=== PATIENT | female | born 1955 | race Caucasian/White ===

== ENCOUNTER → 2017-02-06 | Outpatient (CLI) | payer BC ==
[~2017-02-06] MED LIST: ASPI81TA28 PO; ASTN; B-COTAB18 PO; CALC-358 PO; FLUT50SP14 NAE; GABA-113 PO; LEVO112T2 PO; MELO7.5T5 PO; MULT1CAP6 PO; ONDA4TAB7 SL
--- NOTE | 2017-02-07 10:57 | MAMMOGRAPHY REPORT ---
BILATERAL DIGITAL SCREENING MAMMOGRAM TOMOSYNTHESIS WITH CAD: 02/06/2017 CLINICAL HISTORY: Routine screening. Patient has no complaints. TECHNIQUE: Breast tomosynthesis in addition to standard 2D mammography was performed. Current study was also evaluated with a Computer Aided Detection (CAD) system. COMPARISON: Comparison is made to exams dated: 02/04/2016 mammogram, 11/26/2013 mammogram, 01/06/2015 mammogram - [facility], 08/16/2012 mammogram - [facility], 04/30/2008, an d 02/15/2007. BREAST COMPOSITION: There are scattered areas of fibroglandular density in both breasts. FINDINGS: There are regional punctate microcalcifications in the lateral aspect of each breast, unch anged dating back to at least 2009, therefore likely benign. No new suspicious mass, architectural distortion or cluster of new, suspicious microcalcifications is seen. IMPRESSION: ACR BI-RADS CATEGORY 1: NEGATIVE There is no mammographic evidence of malignancy. A 1 year screening mammogram is recommended. The p atient will receive written notification of the results. Approximately 10% of breast cancers are not detected with mammography. A negative mammographic repor t should not delay biopsy if a clinically suggestive mass is present. Bethany Davis M.D. ay/:02/06/2017 17:18:39 Parts Puller: Isabel LEON)(Dary), [facility] letter sent: Normal 1/2 BI-RADS Code: ACR BI-RADS Category 1: Negative
== END | disposition home or self-care (01) ==
LOC: C.MAMM 09:37
PROVIDERS: ATTEND Family Medicine
DX: Z12.31 Encounter for screening mammogram for malignant neoplasm of breast (principal)

== ENCOUNTER → 2018-02-12 | Outpatient (CLI) | payer OTHER ==
--- NOTE | 2018-02-12 13:56 | MAMMOGRAPHY REPORT ---
BILATERAL DIGITAL SCREENING MAMMOGRAM TOMOSYNTHESIS WITH CAD: 02/12/2018 CLINICAL HISTORY: Routine screening. Patient has no complaints. TECHNIQUE: Breast tomosynthesis in addition to standard 2D mammography was performed. Current study was also evaluated with a Computer Aided Detection (CAD) system. COMPARISON: Comparison is made to exams dated: 02/06/2017 mammogram, 02/04/2016 mammogram, 01/06/2015 m ammogram, 11/26/2013 mammogram - [facility], and 08/16/2012 mammogram - [facility]. BREAST COMPOSITION: There are scattered areas of fibroglandular density in both breasts. FINDINGS: No suspicious masses, calcifications, or areas of architectural distortion are noted in ei ther breast. There has been no significant interval change compared to prior exams. Bilateral benign -appearing calcifications are not significantly changed. IMPRESSION: ACR BI-RADS CATEGORY 2: BENIGN There is no mammographic evidence of malignancy. A 1 year screening mammogram is recommended. The pa tient will receive written notification of the results. Approximately 10% of breast cancers are not detected with mammography. A negative mammographic report should not delay biopsy if a clinically suggestive mass is present. Manuela Pack M.D. /:02/12/2018 08:38:42 Keeper Head: Bianca BURNETTE(Thania)(Dary), [facility] letter sent: Normal 1/2 BI-RADS Code: ACR BI-RADS Category 2: Benign
== END | disposition home or self-care (01) ==
LOC: C.MAMM 08:01
PROVIDERS: ATTEND Physician Assistant
DX: Z12.31 Encounter for screening mammogram for malignant neoplasm of breast (principal)

== ENCOUNTER 2020-08-10 19:03 | Inpatient (IN) ==
[2020-08-10] MEDS ORDERED: LACTATED RINGER'S 1,000 ML IV ONE (19:38)
--- NOTE | 2020-08-10 19:45 | Emergency Department Note ---
Impression & Plan Depression, Fatigue ED Provider Note Provider: Mynor Pulido MD DATE OF SERVICE: 08/10/2020 CHIEF COMPLAINT: Depression, weakness HISTORY OF PRESENT ILLNESS: Patient is a 64-year-old female history of anxiety depression seen by myself recently several times with recent inpatient stay at the [facility] signed out a week ago presented today due to worsening depression anxiety and weakness. Patient states that her inpatient stay was unhelpful and while she was initially placed on Remeron with some improvement is no longer helping and she is very depressed and anxious. Patient states she is barely eating and feels weak. Patient states she has no energy and is very fatigued. No trauma reported. No fevers reported. Denies pain. States her son has just flew into from [place] and is here for support. REVIEW OF SYSTEMS: A total of 10 review of systems was obtained and negative except as stated above in the HPI. PAST MEDICAL HISTORY: As noted above MEDICATIONS: Reviewed home medication listing SOCIAL HISTORY: Currently getting divorce, living with friends PHYSICAL EXAM: GENERAL: alert and oriented laying on stretcher appears quite fatigued tearful Head: normocephalic and atraumatic EYES: No injection, discharge or icterus. NECK: Trachea midline. Supple. ENT: Mucous membranes pink and moist. LUNGS: Airway patent. No retractions. Breath sounds clear with good air entry bilaterally. HEART: Regular rate and rhythm. No chest wall tenderness ABDOMEN: Soft and non-tender, without guarding or rebound. SKIN: Acyanotic, warm, dry, without rashes EXTREMITIES: Without swelling, tenderness or deformity NEUROLOGICAL: No focal deficits. No aphasia. No facial droop or slurred speech. Ambulatory. Psych: No acute SI or HI. Not responding to external stimuli. Hopeless and severely depressed quite tearful during interview. EK bpm normal sinus rhythm. No PVCs. No acute ST segment elevation or depression noted. Normal QTC. Patient's laboratory studies reviewed. Differential includes Mood disorder, infection, hypoglycemia, electrolyte abnormalities, cardiac sources, intracerebral event, toxicologic, trauma, neurologic, as well as other pathologies. IMPRESSION/MEDICAL DECISION MAKING: Basic labs and electrolytes were completed. Seen in conjunction with the psychiatric protective services case worker. No focality to her exam and her believe this is likely related to underlying anxiety and depression causing her fatigue. Hydrated with a liter of IV fluid. Labs without significant abnormality. Patient is basically nonfunctional due to her severe anxiety and depression. Her son who is a nurse crisis clinician from [place] flew into [facility] to provide support. She had a bad experience the medicine does not want to consider going back therapy will see if [facility] may possibly have openings here for inpatient psychiatric treatment. They accept the patient further inpatient treatment. DIAGNOSIS: Anxiety and depression, fatigue DISPOSITION: Inpatient psychiatric treatment Past Med/Surg History Medical History (Updated 08/10/20 @ 22:04 by Mynor Pulido M.D.) GERD (gastroesophageal reflux disease) Hypothyroidism Kidney stones Surgical History History of adenoidectomy History of carpal tunnel release History of colonoscopy History of decompression of ulnar nerve History of dilatation and curettage MISSED AB History of foot surgery 2012. DR. SAL, FX REPAIR History of oral surgery DENTAL IMPLANT History of thyroidectomy History of tonsillectomy Social History Smoking Status: Former smoker Second Hand Exposure: No; Hx Alcohol Use: Yes Alcohol type: wine Hx Substance Use: No Preferred Language: Libyan Communication Ability: Effective Complaint Investigator Required: No Beliefs That Will Affect Care: None Current Living Situation: Spouse Feels Safe at Home: Yes Allergies Allergies Allergy/AdvReac Type Severity Reaction Status Date / Time erythromycin base AdvReac Mild NAUSEA Verified 08/01/20 15:49 Home Meds Home Medications Medication Instructions Recorded Confirmed azelastine 1 spray INTRANASAL BID 02/01/19 08/10/20 omeprazole 20 mg PO DAILY 02/01/19 08/10/20 hydroxyzine HCl 25 mg PO Q6H PRN 08/01/20 08/10/20 clobetasol 1 applic TOPICAL UD PRN 08/10/20 08/10/20 levothyroxine See Rx Instructions .ROUTE .COMPLEX 08/10/20 08/10/20 mirtazapine 15 mg PO HS 08/10/20 08/10/20 Results & Data (ED) Vital Signs Vital Signs - 24 hr 08/10/20 19:15 08/10/20 20:46 Temperature 36.9 C Temperature Source Oral Pulse Rate 78 Pulse Rate [Right Finger] 63 Respiratory Rate 20 16 Respiratory Depth Normal Blood Pressure 121/84 Blood Pressure [Right Arm] 113/67 Blood Pressure Mean 96 Blood Pressure Mean [Right Arm] 82 Blood Pressure Position [Right Arm] Lying Pulse Oximetry 96 98 Oxygen Delivery Method Room Air Room Air Sepsis New/Unexplained Change in Mental Status N/A Sepsis Action Taken by Nursing No Action Required Laboratory Data Result diagrams: 08/10/20 19:52 08/10/20 19:52 Lab Results 08/10/20 08/10/20 08/10/20 Range/Units 19:52 19:52 19:52 WBC 6.83 (4.8-10.8) K/uL RBC 4.55 (4.2-5.4) M/uL Hgb 14.2 (12.0-16.0) g/dL Hct 42.6 (37-47) % MCV 93.6 (80-100) fL MCH 31.2 (25-34) pg MCHC 33.3 (32-36) g/dL RDW Std Deviation 46.1 (36.4-46.3) fL RDW Coeff of Silvio 13.5 (11.5-14.5) % Plt Count 258 (130-400) K/uL MPV 9.7 (7.4-10.4) fL Immature Gran % (Auto) 0.1 % Neut % (Auto) 61.0 % Lymph % (Auto) 25.9 % [place] % (Auto) 11.1 % Eos % (Auto) 1.3 % Baso % (Auto) 0.6 % Neut # (Auto) 4.16 (1.4-6.5) K/uL Lymph # (Auto) 1.77 (1.2-3.4) K/uL [place] # (Auto) 0.76 H (0.11-0.59) K/uL Eos # (Auto) 0.09 (0-0.5) K/uL Baso # (Auto) 0.04 (0-0.2) K/uL Immature Gran # (Auto) 0.01 (0.00-0.02) K/uL Sodium 137 (136-145) mmol/L Potassium 3.8 (3.5-5.1) mmol/L Chloride 105 (98-107) mmol/L Carbon Dioxide 29 (21-32) mmol/L Anion Gap 3.0 (3-11) BUN 19 H (7-18) mg/dl Creatinine 0.84 (0.6-1.2) mg/dl Est Cr Clr Drug Dosing 58.3 ml/min Est GFR ( Amer) 85.7 Est GFR (Non-Af Amer) 74.0 BUN/Creatinine Ratio 22.8 H (10-20) Glucose 90 (70-99) mg/dl Calcium 9.4 (8.5-10.1) mg/dl Total Bilirubin 0.6 (0.2-1) mg/dl AST 12 L (15-37) U/L ALT 23 (12-78) U/L Alkaline Phosphatase 84 (45-117) U/L Total Protein 8.1 (6.4-8.2) gm/dl Albumin 3.9 (3.4-5.0) gm/dl Globulin 4.2 H (2.5-4.0) gm/dl Albumin/Globulin Ratio 0.9 (0.9-2) TSH 0.774 (0.300-4.500) uIu/ml Urine Color Urine Appearance (Clear) Urine pH (4.5-7.5) Ur Specific [place] (1.000-1.030) Urine Protein (Negative) Urine Glucose (UA) (Negative) Urine Ketones (Negative) Urine Blood (Negative) Urine Nitrite (Negative) Urine Bilirubin (Negative) Urine Urobilinogen (Negative) Ur Leukocyte Esterase (Negative) Urine RBC (0-4) /hpf Urine WBC (0-5) /hpf Ur Epithelial Cells (0-5) /lpf Urine Bacteria (Negative) Salicylates < 1.7 L (2.8-20) mg/dl Urine Opiates Screen (Neg) Ur Methadone, Qual (Neg) Acetaminophen < 2 L (10-30) ug/ml Urine Barbiturates (Neg) Ur Phencyclidine (PCP) (Neg) U Amphetamin/Meth Scrn (Neg) MDMA (Ecstasy) Screen (Neg) U Benzodiazepines Scrn (Neg) Ur Cocaine Metabolite (Neg) U Marijuana (THC) Screen (Neg) Ethyl Alcohol mg/dL (0-3) mg/dl 08/10/20 08/10/20 08/10/20 Range/Units 19:52 19:53 20:36 WBC (4.8-10.8) K/uL RBC (4.2-5.4) M/uL Hgb (12.0-16.0) g/dL Hct (37-47) % MCV (80-100) fL MCH (25-34) pg MCHC (32-36) g/dL RDW Std Deviation (36.4-46.3) fL RDW Coeff of Silvio (11.5-14.5) % Plt Count (130-400) K/uL MPV (7.4-10.4) fL Immature Gran % (Auto) % Neut % (Auto) % Lymph % (Auto) % [place] % (Auto) % Eos % (Auto) % Baso % (Auto) % Neut # (Auto) (1.4-6.5) K/uL Lymph # (Auto) (1.2-3.4) K/uL [place] # (Auto) (0.11-0.59) K/uL Eos # (Auto) (0-0.5) K/uL Baso # (Auto) (0-0.2) K/uL Immature Gran # (Auto) (0.00-0.02) K/uL Sodium (136-145) mmol/L Potassium (3.5-5.1) mmol/L Chloride (98-107) mmol/L Carbon Dioxide (21-32) mmol/L Anion Gap (3-11) BUN (7-18) mg/dl Creatinine (0.6-1.2) mg/dl Est Cr Clr Drug Dosing ml/min Est GFR ( Amer) Est GFR (Non-Af Amer) BUN/Creatinine Ratio (10-20) Glucose (70-99) mg/dl Calcium (8.5-10.1) mg/dl Total Bilirubin (0.2-1) mg/dl AST (15-37) U/L ALT (12-78) U/L Alkaline Phosphatase (45-117) U/L Total Protein (6.4-8.2) gm/dl Albumin (3.4-5.0) gm/dl Globulin (2.5-4.0) gm/dl Albumin/Globulin Ratio (0.9-2) TSH (0.300-4.500) uIu/ml Urine Color Yellow Urine Appearance Clear (Clear) Urine pH 6.0 (4.5-7.5) Ur Specific [place] >= 1.030 (1.000-1.030) Urine Protein Negative (Negative) Urine Glucose (UA) Negative (Negative) Urine Ketones Negative (Negative) Urine Blood Trace H (Negative) Urine Nitrite Negative (Negative) Urine Bilirubin Negative (Negative) Urine Urobilinogen Negative (Negative) Ur Leukocyte Esterase Negative (Negative) Urine RBC 0-4 (0-4) /hpf Urine WBC 5-10 H (0-5) /hpf Ur Epithelial Cells >30 H (0-5) /lpf Urine Bacteria Negative (Negative) Salicylates (2.8-20) mg/dl Urine Opiates Screen Neg (Neg) Ur Methadone, Qual Neg (Neg) Acetaminophen (10-30) ug/ml Urine Barbiturates Neg (Neg) Ur Phencyclidine (PCP) Neg (Neg) U Amphetamin/Meth Scrn Neg (Neg) MDMA (Ecstasy) Screen Neg (Neg) U Benzodiazepines Scrn Neg (Neg) Ur Cocaine Metabolite Neg (Neg) U Marijuana (THC) Screen Neg (Neg) Ethyl Alcohol mg/dL < 3.0 (0-3) mg/dl Administered Medications Discontinued Medications Lactated Ringer's (Lr) 1,000 mls @ 999 mls/hr IV .[id number] ONE Stop: 08/10/20 20:38 Last Admin: 08/10/20 20:26 Dose: 999 mls/hr Documented by: [id number] Discharge Plan Visit Data Chief Complaint: Mental Health Evaluation Stated Complaint: depression ED Provider: Mynor Pulido Discharge Problem: Depression, Fatigue Forms Stand Alone Forms: My [facility], Suicide Prevention Resources Prescriptions Prescriptions: No Action omeprazole 20 mg Capsule,Delayed Release(Dr/Ec) 20 mg PO DAILY RF: 0 azelastine 0.15 % (205.5 mcg) [place],Non-Aerosol 1 spray INTRANASAL BID RF: 0 hydroxyzine HCl 25 mg tablet 25 mg PO Q6H PRN (Reason: Anxiety) RF: 0 levothyroxine 100 mcg tablet See Rx Instructions .ROUTE .COMPLEX RF: 0 clobetasol 0.05 % foam 1 applic TOPICAL UD PRN (Reason: Scalp Itchiness) RF: 0 mirtazapine 15 mg tablet 15 mg PO HS RF: 0 Discharge Problem: Depression Qualifiers: Depression Type: major depressive disorder Major depression recurrence: recurrent Active/Remission status: currently active Major depression episode severity: severe Psychotic features: without psychotic features Qualified Code(s): F33.2 - Major depressive disorder, recurrent severe without psychotic features Fatigue Qualifiers: Fatigue type: unspecified Qualified Code(s): R53.83 - Other fatigue
[2020-08-10 20:10] LABS: Basophils # (auto) 0.04 K/uL (0-0.2); Basophils % (auto) 0.6 %; Eosinophils # (auto) 0.09 K/uL (0-0.5); Eosinophils % (auto) 1.3 %; Hematocrit (blood only) 42.6 % (37-47); Hemoglobin 14.2 g/dL (12.0-16.0); Immature Granulocytes # (auto) 0.01 K/uL (0.00-0.02); Immature Granulocytes % (auto) 0.1 %; Lymphocytes # (auto) 1.77 K/uL (1.2-3.4); Lymphocytes % (auto) 25.9 %; Mean Corpuscular Hemoglobin 31.2 pg (25-34); Mean Corpuscular Hgb Conc 33.3 g/dL (32-36); Mean Corpuscular Volume 93.6 fL (80-100); Mean Platelet Volume 9.7 fL (7.4-10.4); Monocytes # (auto) 0.76 K/uL (0.11-0.59); Monocytes % (auto) 11.1 %; Neutrophils # (auto) 4.16 K/uL (1.4-6.5); Platelet Count 258 K/uL (130-400); RDW Coefficient of Variation 13.5 % (11.5-14.5); RDW Standard Deviation 46.1 fL (36.4-46.3); Red Blood Count 4.55 M/uL (4.2-5.4); White Blood Count 6.83 K/uL (4.8-10.8)
[2020-08-10 20:30] LABS: Appearance Urine Clear (Clear); Bilirubin Urine Negative (Negative); Blood Urine Trace (Negative); Color Urine Yellow; Glucose Urine UA Negative (Negative); Ketones Urine Negative (Negative); Leukocyte Esterase Urine Negative (Negative); Nitrite Urine Negative (Negative); Protein Urine Negative (Negative); Specific Gravity Urine >= 1.030 (1.000-1.030); Urobilinogen Urine Negative (Negative)
[2020-08-10 20:37] LABS: Albumin Level 3.9 gm/dl (3.4-5.0); BUN Creatinine Ratio 22.8 (10-20); Calcium 9.4 mg/dl (8.5-10.1); Creatinine Clr Calc Pharmacy 58.3 ml/min; Est GFR (African American) 85.7; Potassium 3.8 mmol/L (3.5-5.1)
[2020-08-10 20:42] LABS: Bacteria Urine Negative (Negative); Epithelial Cell Urine >30 /lpf (0-5); RBC Urine 0-4 /hpf (0-4)
[2020-08-10 20:45] LABS: Salicylate < 1.7 mg/dl (2.8-20)
[2020-08-10 20:46] LABS: Acetaminophen < 2 ug/ml (10-30)
[2020-08-10 20:48] LABS: Albumin Globulin Ratio 0.9 (0.9-2); Bilirubin,Total 0.6 mg/dl (0.2-1); Globulin 4.2 gm/dl (2.5-4.0); Thyroid Stimulating Hormone 0.774 uIu/ml (0.300-4.500); Total Protein 8.1 gm/dl (6.4-8.2)
[2020-08-10 21:06] LABS: Amphetamines+Metham, Urine Neg (Neg); Barbiturates, Urine Neg (Neg); Benzodiazepine, Urine Neg (Neg); Cocaine, Urine Neg (Neg); MDMA (Ecstacy), Urine Neg (Neg); Methadone, Urine Neg (Neg); Opiate, Urine Neg (Neg); Phencyclidine, Urine Neg (Neg)
[2020-08-10] MEDS ORDERED: BISMUTH SUBSALICYLATE PER ML OMNICELL CHARGE PO PRN (22:54)
[2020-08-10] MEDS ORDERED: MAGNESIUM HYDROXIDE SUSP 30 ML UDC PO PRN (22:54)
[2020-08-10] MEDS ORDERED: ALUMINUM/MAGNESIUM SUSP 30 ML UDC PO PRN (22:54)
[2020-08-10] MEDS ORDERED: SODIUM CHLORIDE 0.65% NA SOLN 45 ML (OCEAN) PRN (22:54)
[2020-08-10] MEDS ORDERED: ACETAMINOPHEN 325 MG TAB PO PRN (22:54)
[2020-08-10] MEDS ORDERED: MIRTAZAPINE TAB 15 MG TAB PO ONE (22:55)
[2020-08-11] MEDS: PANTOprazole 40 MG TAB PO SCH (09:06)
[2020-08-11] MEDS: LEVOTHYROXINE SODIUM 50 MCG TABLET PO SCH (09:06)
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
--- NOTE | 2020-08-11 15:11 | Electrocardiogram Report ---
Test Reason : Blood Pressure : / mmHG Vent. Rate : 061 BPM Atrial Rate : 061 BPM P-R Int : 160 ms QRS Dur : 082 ms QT Int : 404 ms P-R-T Axes : 077 060 067 degrees QTc Int : 406 ms Normal sinus rhythm Early repolarization Normal ECG When compared with ECG of 16-MAY-2013 09:22, No significant change was found Confirmed by Ernesto Medrano ([id number]) on 08/11/2020 3:11:01 PM Referred By: REFERRED SELF Confirmed By:Ernesto Medrano
[2020-08-11] MEDS ORDERED: MIRTAZAPINE TAB 15 MG TAB PO SCH (22:00)
[2020-08-11] MEDS: MIRTAZAPINE TAB 15 MG TAB PO SCH (22:05)
[2020-08-12] MEDS: LEVOTHYROXINE SODIUM 100 MCG TABLET PO SCH (06:16)
[2020-08-12] MEDS: PANTOprazole 40 MG TAB PO SCH (09:04)
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
[2020-08-12] MEDS: BISMUTH SUBSALICYLATE LIQD 236 ML PO PRN ×2 (10:39→17:24)
[2020-08-12] MEDS ORDERED: QUETIAPINE FUMARATE 25 MG TABLET PO STA (13:16)
[2020-08-12] MEDS ORDERED: QUETIAPINE FUMARATE 25 MG TABLET PO PRN (13:17)
[2020-08-12] MEDS: MIRTAZAPINE TAB 15 MG TAB PO SCH (22:57)
[2020-08-13] MEDS: LEVOTHYROXINE SODIUM 50 MCG TABLET PO SCH (09:53)
[2020-08-13] MEDS: PANTOprazole 40 MG TAB PO SCH (09:53)
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
[2020-08-13] MEDS ORDERED: ARIPiprazole 5 MG TAB PO ONE (10:30)
[2020-08-13] MEDS ORDERED: clonazePAM 0.5 MG TAB PO STA (12:43)
[2020-08-13] MEDS ORDERED: clonazePAM 0.5 MG TAB PO PRN (16:35)
[2020-08-13] MEDS: MIRTAZAPINE TAB 15 MG TAB PO SCH (21:25)
[2020-08-14] MEDS: LEVOTHYROXINE SODIUM 100 MCG TABLET PO SCH (06:49)
[2020-08-14 07:55] LABS: Glucose Fasting 87 mg/dl (70-99)
[2020-08-14 08:01] LABS: Chol HDL Ratio 3; Cholesterol 220 mg/dl (0-200); HDL Cholesterol 74 mg/dl; LDL Cholesterol Calculated 125 mg/dl; Triglycerides 106 mg/dl (0-150); VLDL Cholesterol 21 mg/dl
[2020-08-14] MEDS: clonazePAM 0.25 MG TAB PO SCH ×2 (09:14→21:21)
[2020-08-14] MEDS: ARIPiprazole 5 MG TAB PO SCH (09:14)
[2020-08-14] MEDS: PANTOprazole 40 MG TAB PO SCH (09:14)
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
[2020-08-14] MEDS: MIRTAZAPINE TAB 15 MG TAB PO SCH (21:21)
[2020-08-15] MEDS: LEVOTHYROXINE SODIUM 50 MCG TABLET PO SCH (07:00)
[2020-08-15] MEDS: PANTOprazole 40 MG TAB PO SCH (08:56)
[2020-08-15] MEDS: clonazePAM 0.25 MG TAB PO SCH ×2 (08:56→21:33)
[2020-08-15] MEDS: ARIPiprazole 5 MG TAB PO SCH (08:56)
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
[2020-08-15] MEDS: FLUTICASONE PROPIONATE NA SPR 16 GM BTL SCH ×2 (14:37→21:33)
[2020-08-15] MEDS: MIRTAZAPINE TAB 15 MG TAB PO SCH (21:34)
[2020-08-16] MEDS: LEVOTHYROXINE SODIUM 100 MCG TABLET PO SCH (06:32)
[2020-08-16] MEDS: clonazePAM 0.25 MG TAB PO SCH ×2 (09:37→21:24)
[2020-08-16] MEDS: ARIPiprazole 5 MG TAB PO SCH (09:37)
[2020-08-16] MEDS: PANTOprazole 40 MG TAB PO SCH (09:37)
[2020-08-16] MEDS: FLUTICASONE PROPIONATE NA SPR 16 GM BTL SCH ×2 (09:38→21:23)
[2020-08-16] MEDS: POLYETHYLENE (MIRALAX) 17 GM PACK PO SCH (10:17)
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
[2020-08-16] MEDS: MIRTAZAPINE TAB 15 MG TAB PO SCH (21:24)
[2020-08-17] MEDS: LEVOTHYROXINE SODIUM 50 MCG TABLET PO SCH (06:22)
[2020-08-17] MEDS: ARIPiprazole 5 MG TAB PO SCH (09:23)
[2020-08-17] MEDS: FLUTICASONE PROPIONATE NA SPR 16 GM BTL SCH (09:23)
[2020-08-17] MEDS: PANTOprazole 40 MG TAB PO SCH (09:24)
[2020-08-17] MEDS: clonazePAM 0.25 MG TAB PO SCH (09:31)
[2020-08-17] MEDS: POLYETHYLENE (MIRALAX) 17 GM PACK PO SCH (09:31)
--- NOTE | 2020-08-17 09:46 | Discharge Summary ---
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 the Mental Health Advance Directives Pamphlet for your review. AFTERCARE APPOINTMENTS: * Please call your insurance company prior to your scheduled appointment to confirm your aftercare providers are covered. Take your insurance information to your appointments. WHO TO CALL AND WHEN: Medical Emergencies: For questions or emergencies related to your hospital stay, please contact the Inpatient Behavioral Health Unit at [phone]. A outreach clinician is on-call 19/06 for the Behavioral Health Unit for emergencies At any time you feel your situation is an emergency, you may also call 911 immediately. Pending Studies at Discharge: No Stand-Alone Forms: [facility], Smoking Cess[facility], Suicide Prevention Resources Medications and DC Order Prescriptions: New aripiprazole [Abilify] 5 mg Tablet 5 mg PO QAM 30 Days Qty: 30 RF: 0 mirtazapine 30 mg tablet 30 mg PO HS 30 Days Qty: 30 RF: 0 clonazepam 0.5 mg tablet 0.25 mg PO BID PRN (Reason: anxiety) 3 Days Qty: 3 RF: 0 Continued omeprazole 20 mg Capsule,Delayed Release(Dr/Ec) 20 mg PO DAILY RF: 0 azelastine 0.15 % (205.5 mcg) [place],Non-Aerosol 1 spray INTRANASAL BID RF: 0 levothyroxine 100 mcg tablet See Rx Instructions .ROUTE .COMPLEX RF: 0 clobetasol 0.05 % foam 1 applic TOPICAL UD PRN (Reason: Scalp Itchiness) RF: 0 Discontinued hydroxyzine HCl 25 mg tablet 25 mg PO Q6H PRN (Reason: Anxiety) RF: 0 mirtazapine 15 mg tablet 15 mg PO HS RF: 0 Discharge Orders: Discharge Order (Routine); Ordered 08/17/20 Ordered By: Ricarda Garcia Admission Data Admit Date/Time: 08/10/20 22:04 Attending Provider: Kylie Wallace Admit Provider: Kylie Wallace Primary Care Provider: Neeraj De Dios Other Interventions: Discharge Summary Assessment (RN) Last Done: 08/17/20 10:44 PSY Interdisciplinary Discharge Planning Last Done: 08/17/20 10:48 Coding Level of Care Code 28600 D/C day mgmt > 30 min Diagnoses Depression F33.2 Active/Remission status: currently active Depression Type: major depressive disorder Major depression episode severity: severe Major depression recurrence: recurrent Psychotic features: without psychotic features Acute anxiety F41.9 GERD (gastroesophageal reflux disease) K21.9 Hypothyroidism E03.9
== END 2020-08-17 11:55 | disposition home or self-care (01) | DRG 885 ==
LOC: ED 19:03 → 3S 22:04